=== PATIENT | female | born 1995 | race Caucasian/White ===

== ENCOUNTER 2018-03-22 12:31 | Emergency (ER) | payer BC ==
[2018-03-22 13:00] VITALS: BP 134/66
--- NOTE | 2018-03-22 13:10 | UC ---
Back Pain HPI - HPI Summary HPI Summary: YESTERDAY AROUND 1PM, PT FELT A SUDDEN PAIN SHOOT INTO THE TIP OF HER TAILBONE WHILE BENDING OVER LIFTING A SHEET PAIN FROM AN OVEN. DENIES ANY DIRECT INJURY. PAIN OCCURS UPON BENDING FORWARD. NO FEVER, ABDOMINAL PAIN, NUMB/WEAK EXTREMITIES, SADDLE ANESTHESIA OR BOWEL/ BLADDER DYSFUNCTION. PT ALSO NOTES 2 DAYS HX PAIN TO THE BACK OF HER L WRIST WITH BENDING IT AND TOP OF L FOOT WHEN SHE STRETCHES THE FOOT BACKWARDS. NO INJURY BUT DOES A LOT OF REPEAT WORK AND WALKING ON HARD SURFACES AT WORK. NO ACUTE ILLNESS, FEVER OR SWELLING TO JOINTS. - History of Current Complaint Chief Complaint: UCBackPain Stated Complaint: LOWER BACK COMPLAINT Time Seen by Provider: 03/22/18 12:53 Hx Obtained From: Patient Hx Last Menstrual Period: 03/08/18 Pain Intensity: 8 Associated Signs And Symptoms: Negative: Fever, Weakness, Numbness, Tingling, Abdominal Pain, Flank Pain, Bladder Incontinence, Bowel Incontinence - Allergies/Home Medications Allergies/Adverse Reactions: Allergies Allergy/AdvReac Type Severity Reaction Status Date / Time Penicillins Allergy Unknown Hives Verified 03/22/18 12:50 Sulfa (Sulfonamide Allergy Unknown Hives Verified 03/22/18 12:50 Antibiotics) Home Medications: Home Medications Citalopram TAB* [CeleXA TAB*] 20 mg PO DAILY 03/22/18 [History Confirmed ] Desogestrel-Ethinyl Estradiol [Enskyce 28 Tablet] 1 each PO DAILY 03/22/18 [ History Confirmed 03/22/18] Loratadine [Claritin 10 MG CAP] 10 mg PO DAILY 03/22/18 [History Confirmed 03/22] PMH/Surg Hx/FS Hx/Imm Hx Psychological History: Anxiety, Depression - Surgical History Surgical History: None - Social History Alcohol Use: Occasionally Substance Use Type: None Smoking Status (MU): Never Smoked Tobacco - Immunization History Vaccination Up to Date: Yes Review of Systems Constitutional: Negative Skin: Negative Eyes: Negative ENT: Negative Respiratory: Negative Cardiovascular: Negative Gastrointestinal: Negative Genitourinary: Negative Motor: Negative Neurovascular: Negative Musculoskeletal: Other: - TAILBONE PAIN. L WRIST AND FOOT PAIN Neurological: Negative Psychological: Negative Is Patient Immunocompromised?: No All Other Systems Reviewed And Are Negative: Yes Physical Exam Triage Information Reviewed: Yes Appearance: Well-Appearing Vital Signs: Initial Vital Signs Temp 98.3 F 03/22/18 12:52 Pulse 101 03/22/18 12:52 Resp 17 03/22/18 12:52 BP 134/66 03/22/18 12:52 Pulse Ox 99 03/22/18 12:52 Vital Signs Reviewed: Yes Eyes: Positive: Conjunctiva Clear ENT: Positive: Normal ENT inspection Neck: Positive: Supple, Nontender, No Lymphadenopathy Respiratory: Positive: Lungs clear, Normal breath sounds Cardiovascular: Positive: RRR, No Murmur Abdomen Description: Positive: Nontender, No Organomegaly, Soft Bowel Sounds: Positive: Present Musculoskeletal: Positive: Other: - BACK: NO GROSS DEFORMITY, SWELLING OR DISCOLORATION. TENDER OVER LOW SACRUM TO COCCYX BUT NO INSTABILITY, RASH OR FLUCTUANCE. NO SADDLE ANESTHESIA. PAIN INCREASE WITH FLEXION OF BACK BUT ROM IS INTACT. S/V/M IS INTACT X4. L WRIST HAS NO DEFORMITY, SWELLING OR DISCOLORATION AND IS NON TENDER TO PALPATION. PT NOTES PAIN WITH EXTENSION AGAIST RESISTANCE. L HAND HAS FULL S/V/M FUNCTION. L FOOT HAS NO GROSS DEFORMITY SWELLING OR DISCOLORATION AND IS NON TENDER TO PALPATION. PAIN WITH DORSIFLEXION. FOOT HAS FULL S/V/M FUNCRION. Neurological: Positive: Alert Psychological: Positive: Normal Response To Family, Age Appropriate Behavior Skin Exam: Normal Skin: Negative: rashes Back Pain Course/Dx - Course Course Of Treatment: NO ACUTE ABDOMEN, NO CONCERN FOR INFECTIONS OR CAUDA EQUINA. WILL TX WITH NSAID. L WRIST IS C/W TENDINITIS, PT HAS WRSIT SPLINT TO WEAR. L FOOT C/W STRAIN. NSAID WILL ALSO TX PT WRIST AND FOOT. - Differential Dx/Diagnosis Provider Diagnoses: ACUTE SACRAL-COCCYX PAIN, TENDINITIS L WRIST, STRAIN L FOOT Discharge - Sign-Out/Discharge Documenting (check all that apply): Patient Departure All imaging exams completed and their final reports reviewed: No Studies - Discharge Plan Condition: Stable Disposition: HOME Prescriptions: Naproxen [Naprosyn 500 mg tab] 500 mg PO BID 5 Days #10 tablet Patient Education Materials: Muscle Strain (DC), Acute Low Back Pain (ED), Tendinitis (ED) Referrals: Gayathri Carey PA [Primary Care Provider] - 7 Days Additional Instructions: DIAGNOSIS: ACUTE SACRAL-COCCYX PAIN, TENDINITIS LEFT WRIST, STRAIN LEFT FOOT. USE YOUR WRIST SPLINT UNTIL WRIST IS BETTER - Billing Disposition and Condition Condition: STABLE Disposition: Home
== END 2018-03-22 13:31 | disposition home or self-care (01) ==
LOC: UCCORT 12:31
DX: M53.3 Sacrococcygeal disorders, not elsewhere classified (principal); M77.9 Enthesopathy, unspecified; S96.912A Strain of unspecified muscle and tendon at ankle and foot level, left foot, initial encounter; X58.XXXA Exposure to other specified factors, initial encounter; Y92.9 Unspecified place or not applicable; F41.8 Other specified anxiety disorders; Z79.899 Other long term (current) drug therapy; Z88.0 Allergy status to penicillin; Z88.2 Allergy status to sulfonamides
CPT/HCPCS: 99201; G0463

== ENCOUNTER 2018-11-07 18:50 | Emergency (ER) | payer BC ==
[2018-11-07 19:38] VITALS: BP 133/70
--- NOTE | 2018-11-07 20:32 | UC ---
UC General HPI - HPI Summary HPI Summary: 23-year-old female comes in with a chief complaint of feeling foggy. Patient reports her last 5 days she's had some cognitive difficulties with math. Also she feels like somebody be talking to her and then she comes back in the conversation not remembering anything of the persons said. No headache no weakness no numbness no difficulty with vision or speech. She does have a history of anxiety and depression no new medications. - History of Current Complaint Chief Complaint: UCGeneralIllness Stated Complaint: HEAD FOGGY Time Seen by Provider: 11/07/18 19:56 Hx Last Menstrual Period: "2 WEEKS AGO" Pain Intensity: 0 - Allergy/Home Medications Allergies/Adverse Reactions: Allergies Allergy/AdvReac Type Severity Reaction Status Date / Time Penicillins Allergy Unknown Hives Verified 11/07/18 19:28 Sulfa (Sulfonamide Allergy Unknown Hives Verified 11/07/18 19:28 Antibiotics) Home Medications: Home Medications buPROPion TAB* [Wellbutrin TAB*] 1 tab DAILY 11/07/18 [History Confirmed ] PMH/Surg Hx/FS Hx/Imm Hx Previously Healthy: Yes Psychological History: Anxiety, Depression - Surgical History Surgical History: None - Family History Known Family History: Positive: Non-Contributory - Social History Alcohol Use: Occasionally Substance Use Type: None Smoking Status (MU): Never Smoked Tobacco - Immunization History Vaccination Up to Date: Yes Review of Systems All Other Systems Reviewed And Are Negative: Yes Constitutional: Positive: Other - SEE HPI Skin: Positive: Negative Eyes: Positive: Negative ENT: Positive: Negative Respiratory: Positive: Negative Cardiovascular: Positive: Negative Gastrointestinal: Positive: Negative Genitourinary: Positive: Negative Motor: Positive: Negative Neurovascular: Positive: Negative Musculoskeletal: Positive: Negative Neurological: Positive: Negative Psychological: Positive: Anxious Is Patient Immunocompromised?: No Physical Exam Triage Information Reviewed: Yes Appearance: Well-Appearing, No Pain Distress, Well-Nourished Vital Signs: Initial Vital Signs Temp 98.3 F 11/07/18 19:29 Pulse 91 11/07/18 19:29 Resp 16 11/07/18 19:29 BP 133/70 11/07/18 19:29 Pulse Ox 100 11/07/18 19:29 Vital Signs Reviewed: Yes Eye Exam: Normal Eyes: Positive: Conjunctiva Clear, Other: - PERRLA/EOMI ENT: Positive: Pharynx normal, TMs normal Neck: Positive: Supple Respiratory: Positive: Lungs clear, Normal breath sounds, No respiratory distress Cardiovascular: Positive: RRR Musculoskeletal Exam: Normal Musculoskeletal: Positive: Strength Intact, ROM Intact Neurological Exam: Normal Neurological: Positive: Alert, Muscle Tone Normal Psychological Exam: Normal Psychological: Positive: Age Appropriate Behavior Skin Exam: Normal Course/Dx - Course Course Of Treatment: Patient has no focal neurologic deficits. She is describing cognitive deficits which I did not encounter on our interview. We discussed getting a CT imaging of the brain however the patient declined it at this time. We are getting a check a CBC CMP TSH and hCG. All those results are pending. Patient does have a history of anxiety and depression. I recommended following up with the family practice physician and also her counselor. Also let her know if she had any neurologic deficits or do not improve she should get reevaluated in the emergency department. - Diagnoses Provider Diagnosis: Confusion Discharge - Sign-Out/Discharge Documenting (check all that apply): Patient Departure All imaging exams completed and their final reports reviewed: No Studies - Discharge Plan Condition: Stable Disposition: HOME Patient Education Materials: Altered Mental Status (ED) Referrals: Gayathri Carey PA [Primary Care Provider] - Additional Instructions: FOLLOW UP WITH YOUR DOCTOR. GET RECHECKED SOONER IF YOUR CONDITION WORSENS; WEAKNESS, NUMBNESS, DIFFICULTY WITH VISION OR SPEECH, YOU FEEL ILL OR ANY QUESTIONS OR CONCERNS. - Billing Disposition and Condition Condition: STABLE Disposition: Home
[2018-11-08 11:21] LABS: ABS Basophils 0.1 10^3/ul (0-0.2); ABS Eosinophils 0.5 10^3/ul (0-0.6); ABS Lymphocytes 2.2 10^3/ul (1.0-4.8); ABS Monocytes 0.6 10^3/ul (0-0.8); ABS Neutrophils 7.3 10^3/ul (1.5-7.7); Eosinophil % 4.9 %; Hematocrit 41 % (35-47); Hemoglobin 13.7 g/dL (12.0-16.0); Lymphocyte % 20.8 %; Mean Corpuscular HGB Conc 34 g/dL (31-36); Mean Corpuscular Hemoglobin 28 pg (27-31); Mean Corpuscular Volume 82 fL (80-97); Mean Platelet Volume 9.2 fL (7.4-10.4); Nucleated Red Blood Cells % 0.1; Platelet Count 408 10^3/uL (150-450); Red Blood Count 4.96 10^6 /uL (3.70-4.87); Red Cell Distribution Width 14 % (10-15); White Blood Count 10.7 10^3/uL (3.5-10.8)
[2018-11-08 11:38] LABS: HCG Pregnancy < 0.60 mIU/mL
[2018-11-08 11:41] LABS: TSH (Thyroid Stimulating Horm) 1.91 mcIU/mL (0.34-5.60)
[2018-11-08 14:48] LABS: Albumin 4.2 g/dL (3.2-5.2); Anion Gap 11 mmol/L (2-11); CO2 Carbon Dioxide 23 mmol/L (22-32); Calcium 9.8 mg/dL (8.6-10.3); Chloride 106 mmol/L (101-111); Potassium 4.1 mmol/L (3.5-5.0); Sodium 140 mmol/L (135-145)
[2018-11-08 14:54] LABS: ALT 15 U/L (7-52); AST 15 U/L (13-39); Albumin/Globulin Ratio 1.2 (1-3); Alkaline Phosphatase 85 U/L (34-104); BUN/Creatinine Ratio 23.4 (8-20); Blood Urea Nitrogen 18 mg/dL (6-24); EGFR African American 111.4 (>60); EGFR Non-African American 92.1 (>60); Globulin 3.4 g/dL (2-4); Glucose 90 mg/dL (70-100); Total Protein 7.6 g/dL (6.4-8.9)
== END 2018-11-07 21:21 | disposition home or self-care (01) ==
LOC: UCCORT 18:50
DX: R41.0 Disorientation, unspecified (principal); F41.8 Other specified anxiety disorders
CPT/HCPCS: 36415; 80053; 84443; 84702; 85025; 99211; G0463